=== PATIENT | female | born 1965 | race Caucasian/White ===

== ENCOUNTER 2020-11-01 20:42 | Emergency (ER) | payer BC ==
[~2020-11-01] VITALS: Ht 160 cm; Wt 124.7 kg
[2020-11-01] MEDS ORDERED: PROAIR HFA8.5 GM INH (22:35)
[2020-11-01] MEDS ORDERED: MUCINEX1200 MG PO (22:35)
== END 2020-11-01 23:30 | disposition home or self-care (01) ==
LOC: ER1 20:42
DX: Z23 Encounter for immunization (principal); U07.1 COVID-19
CPT/HCPCS: 87081; 87880; 99284; M0243

== ENCOUNTER → 2021-03-25 | Outpatient (CLI) | payer BC ==
[~2021-03-25] MED LIST: MUCINEX1200 MG PO; PROAIR HFA8.5 GM INH
== END ==
LOC: HEART 5 08:00
DX: R00.2 Palpitations (principal); I10 Essential (primary) hypertension

== ENCOUNTER → 2021-08-03 | Outpatient (CLI) | payer BC | LOC: RAD 08:47 | DX: R13.10 Dysphagia, unspecified (principal); K44.9 Diaphragmatic hernia without obstruction or gangrene; K21.9 Gastro-esophageal reflux disease without esophagitis; K22.9 Disease of esophagus, unspecified | CPT/HCPCS: 74221 ==